=== PATIENT | female | born 1940 | race Native Hawaiian/Other Pacific Islander ===

== ENCOUNTER 2018-10-21 08:47 | Day surgery (SDC) | payer OTHER, BC | END 2018-10-21 10:35 | disposition home or self-care (01) | LOC: OR 08:47 | PROC: 3E0R33Z Introduction of Anti-inflammatory into Spinal Canal, Percutaneous Approach (ICD-10-PCS; principal; 2018-10-21) | PROC: 3E0R3BZ Introduction of Anesthetic Agent into Spinal Canal, Percutaneous Approach (ICD-10-PCS; 2018-10-21) | DX: M53.3 Sacrococcygeal disorders, not elsewhere classified (principal); M46.1 Sacroiliitis, not elsewhere classified | CPT/HCPCS: J1020; J3490 ==

== ENCOUNTER 2019-06-08 10:00 | Day surgery (SDC) | payer OTHER, BC ==
[2019-06-08 11:14] LABS: PLATELET COUNT 230 K/uL (152-353)
[2019-06-08 11:32] LABS: POTASSIUM 3.6 mmol/L (3.6-5.2)
[2019-06-08 11:37] LABS: PARTIAL THROMBOPLASTIN TIME 22.1 SECONDS (24.5-33.6)
== END 2019-06-08 15:28 | disposition home or self-care (01) ==
LOC: OR 10:00
PROVIDERS: Pain Medicine Interventional Pain Medicine
PROC: 3E0T3TZ Introduction of Destructive Agent into Peripheral Nerves and Plexi, Percutaneous Approach (ICD-10-PCS; principal; 2019-06-08)
PROC: BR16YZZ Fluoroscopy of Lumbar Facet Joint(s) using Other Contrast (ICD-10-PCS; 2019-06-08)
DX: M53.3 Sacrococcygeal disorders, not elsewhere classified (principal); M46.1 Sacroiliitis, not elsewhere classified; M47.818 Spondylosis without myelopathy or radiculopathy, sacral and sacrococcygeal region; R55 Syncope and collapse
CPT/HCPCS: 80053; 85027; 85610; 85730; J1100; J2001; J2405; J2704